=== PATIENT | female | born 1990 | race Caucasian/White ===

== ENCOUNTER 2021-01-05 21:56 | Emergency (ER) | payer OTHER ==
[2021-01-05 22:04] VITALS: BP 110/73; PULSE 96; RESP 18; TEMP 97.4
--- NOTE | 2021-01-05 22:35 | ED ---
General Adult HPI - General Chief complaint: Upper Respiratory Infection Stated complaint: Covid Exposure, Cough Time Seen by Provider: 01/05/21 22:05 Source: patient, RN notes reviewed Mode of arrival: ambulatory Limitations: no limitations - History of Present Illness Initial comments: 30-year-old female with a past medical history of asthma presents to the emergency room for a chief complaint of not feeling well. Patient states she has had a cough and congestion for the past few days. She has also had body aches. Patient is also about 8 weeks . Denies chest pain or shortness of breath.Patient has no other complaints at this time including shortness of breath, chest pain, abdominal pain, nausea or vomiting, headache, or visual pro ges. - Related Data Allergies Allergy/AdvReac Type Severity Reaction Status Date / Time sulfamethoxazole AdvReac Rash/Hives Verified 01/05/21 22:04 [From Bactrim] trimethoprim [From Bactrim] AdvReac Rash/Hives Verified 01/05/21 22:04 Review of Systems ROS Statement: Those systems with pertinent positive or pertinent negative responses have been documented in the HPI. ROS Other: All systems not noted in ROS Statement are negative. Past Medical History Past Medical History: Asthma History of Any Multi-Drug Resistant Organisms: None Reported Past Surgical History: Section Additional Past Surgical History / Comment(s): DNC Past Psychological History: Depression Smoking Status: Former smoker Past Alcohol Use History: None Reported Past Drug Use History: None Reported General Exam Limitations: no limitations General appearance: alert, in no apparent distress Head exam: Present: atraumatic Eye exam: Present: normal appearance, PERRL, EOMI. Absent: scleral icterus, conjunctival injection ENT exam: Present: normal exam, mucous membranes moist Neck exam: Present: normal inspection, full ROM Respiratory exam: Present: normal lung sounds bilaterally. Absent: respiratory distress, wheezes Cardiovascular Exam: Present: regular rate, normal rhythm, normal heart sounds Course Vital Signs 01/05/21 01/05/21 21:59 22:39 Temperature 97.4 F L Pulse Rate 96 Respiratory 18 18 Rate Blood Pressure 110/73 O2 Sat by Pulse 98 Oximetry Medical Decision Making - Medical Decision Making Vitals are stable. Patient is well-appearing. Patient did test positive for COVID-19. Pt qualifies for monoclonal antibodies given she is and does have asthma. I did encourage antibodies however patient would like to talk to her STEAMBOAT INSPECTOR first. She will try to get a hold of them tomorrow. I did inform patient that antibodies are best given earlier in disease course and to return as it is possible she does want these. She will follow-up with her doctor and return for any worsening symptoms. - Lab Data Lab Results 01/05/21 Range/Units 22:39 Coronavirus (PCR) Detected A (Not Detectd) Disposition Clinical Impression: COVID-19 Disposition: HOME SELF-CARE Condition: Good Instructions (If sedation given, give patient instructions): Coronavirus Disease 2019 (COVID-19) Additional Instructions: Please continue Tylenol for body aches. Drink plenty of fluids. Follow-up with your doctor. Return to the emergency room for any worsening symptoms. Is patient prescribed a controlled substance at d/c from ED?: No Referrals: Nonstaff,Physician [Primary Care Provider] - 1-2 days Time of Disposition: 23:23
[2021-01-05] MEDS ORDERED: ACETAMINOPHEN TAB 500 MG TAB PO STA (23:16)
== END 2021-01-05 23:43 | disposition home or self-care (01) ==
LOC: EC 21:56
DX: O98.511 Other viral diseases complicating pregnancy, first trimester (principal); U07.1 COVID-19; J45.909 Unspecified asthma, uncomplicated; F32.A Depression, unspecified; Z87.891 Personal history of nicotine dependence; Z3A.08 8 weeks gestation of pregnancy
CPT/HCPCS: 87635; 99284

== ENCOUNTER 2022-05-24 19:43 | Emergency (ER) | payer OTHER ==
[2022-05-24 19:52] VITALS: RESP 18; TEMP 98
[2022-05-24] MEDS ORDERED: KETOROLAC 15 MG/ML 1 ML VIAL IM STA (20:34)
--- NOTE | 2022-05-24 20:35 | ED ---
ENT HPI - General Chief complaint: Dental/Oral Stated complaint: toothache Time Seen by Provider: 05/24/22 20:15 Source: patient, RN notes reviewed Mode of arrival: ambulatory Limitations: no limitations - History of Present Illness Initial comments: Patient is 32-year-old female presented to the emergency room complaints of right-sided dental pain with swelling ongoing for approximately 2 days. She was evaluated by urgent care and placed on antibiotic therapy which she is currently taking. She reports taking a [place] and Percocet which are not prescribed her along with gabapentin not prescribed to her to treat the pain as it has continued despite antibiotic use. She has not scheduled with the dentist yet. She has not taken any anti-inflammatories she denies any new symptoms or new areas of concern. She is able to eat and drink without consultation. She reports fevers but is unable to disclose T-max. She denies any chills, nausea, vomiting, headache not directly related to cheek pain, dizziness or weakness. - Related Data Previous Rx's Medication Instructions Recorded Ibuprofen [Motrin] 800 mg PO Q8H PRN 7 Days #21 tab 05/24/22 Allergies Allergy/AdvReac Type Severity Reaction Status Date / Time sulfamethoxazole AdvReac Rash/Hives Verified 01/05/21 22:04 [From Bactrim] trimethoprim [From Bactrim] AdvReac Rash/Hives Verified 01/05/21 22:04 Review of Systems ROS Statement: Those systems with pertinent positive or pertinent negative responses have been documented in the HPI. ROS Other: All systems not noted in ROS Statement are negative. Past Medical History Past Medical History: Asthma History of Any Multi-Drug Resistant Organisms: None Reported Past Surgical History: Section Additional Past Surgical History / Comment(s): DNC Past Psychological History: Depression Smoking Status: Former smoker Past Alcohol Use History: Occasional Past Drug Use History: Marijuana General Exam Limitations: no limitations Course Vital Signs 05/24/22 05/24/22 19:45 20:46 Temperature 98.0 F Pulse Rate 83 90 Respiratory 18 18 Rate Blood Pressure 113/74 120/70 O2 Sat by Pulse 99 98 Oximetry Medical Decision Making - Medical Decision Making Was pt. sent in by a medical professional or institution (, PA, ELECTRO MECHANICAL TECHNOLOGIST, urgent care, hospital, or care home...) When possible be specific @ -No Did you speak to anyone other than the patient for history (EMS, parent, family, police, friend...)? What history was obtained from this source @ -No Did you review nursing and triage notes (agree or disagree)? Why? @ -I reviewed and agree with nursing and triage notes Were old charts reviewed (outside hosp., previous admission, EMS record, old EKG, old radiological studies, urgent care reports/EKG's, care home records)? Report findings @ -No old charts were reviewed Differential Diagnosis (chest pain, altered mental status, abdominal pain women, abdominal pain men, vaginal bleeding, weakness, fever, dyspnea, syncope, headache, dizziness, GI bleed, back pain, seizure, CVA, palpatations, mental health, musculoskeletal)? @ -Differential Dental Pain: Gingivitis, dental abscess, gingivitis abscess, acute pulpitis, dental caries, tooth fracture, impacted molar, toothache, acute necrotizing ulcerative gingivitis, oral herpes simplex infection, candidiasis of the mouth, aphyhous ulcer... this is not meant to be an all-inclusive list. EKG interpreted by me (3pts min.). @ -None done X-rays interpreted by me (1pt min.). @ -None done CT interpreted by me (1pt min.). @ -None done U/S interpreted by me (1pt. min.). @ -None done What testing was considered but not performed or refused? (CT, X-rays, U/S, labs)? Why? @ -None What meds were considered but not given or refused? Why? @ -None Did you discuss the management of the patient with other professionals (professionals i.e. , PA, ELECTRO MECHANICAL TECHNOLOGIST, lab, RT, psych nurse, social sciences department chair, slip maker, teacher, commercial loan collection officer, rn case management)? Give summary @ -No Was smoking cessation discussed for >3mins.? @ -No Was critical care preformed (if so, how long)? @ -No Were there social determinants of health that impacted care today? How? (Homelessness, low income, unemployed, alcoholism, drug addiction, transportation, low edu. Level, literacy, decrease access to med. care, group home, rehab)? @ -No Was there de-escalation of care discussed even if they declined (Discuss DNR or withdrawal of care, Hospice)? DNR status @ -No What co-morbidities impacted this encounter? (DM, HTN, Smoking, COPD, CAD, Cancer, CVA, ARF, Chemo, Hep., AIDS, mental health diagnosis, sleep apnea, morbid obesity)? @ -None Was patient admitted / discharged? Hospital course, mention meds given and route, prescriptions, significant lab abnormalities, going to OR and other pertinent info. @ -32-year-old female presenting to the emergency room with dental pain ongoing for 2 days despite current antibiotic prescribed by urgent care. Discussion with patient regarding course of dental abscesses and need to follow up with dentition along with need for anti-inflammatory use and warm salt water rinses. Will give 15 mg of Toradol IM and prescribed ibuprofen for use at home to take while taking her current antibiotic therapy. Advised no other NSAIDs while taking high-dose and Motrin. Advised alternating Tylenol with pain and not taking medications that are not prescribed to her. Undiagnosed new problem with uncertain prognosis? @ -No Drug Therapy requiring intensive monitoring for toxicity (Heparin, Nitro, Insulin, Cardizem)? @ -No Were any procedures done? @ -No Diagnosis/symptom? @ -Dental abscess Acute, or Chronic, or Acute on Chronic? @ -Acute Uncomplicated (without systemic symptoms) or Complicated (systemic symptoms)? @ -Uncomplicated Side effects of treatment? @ -No Exacerbation, Progression, or Severe Exacerbation? @ -No Poses a threat to life or bodily function? How? (Chest pain, [place], [place], pneumonia, PE, COPD, DKA, ARF, appy, cholecystitis, CVA, Diverticulitis, Homicidal, Suicidal, threat to staff... and all critical care pts) @ -No Case discussed with Dr. Celeste Disposition Clinical Impression: Dental abscess Disposition: HOME SELF-CARE Condition: Stable Instructions (If sedation given, give patient instructions): Dental Abscess (ED) Additional Instructions: Complete current antibiotic as prescribed by urgent care of Augmentin. Utilize ibuprofen prescription as needed for pain and swelling. Ice packs and salt water rinses may help reduce swelling. Avoid smoking and citrus/acidic food and drinks. Please follow-up with her dentist. Please return to the Emergency Department if symptoms worsen or any other concerns. Prescriptions: Ibuprofen [Motrin] 800 mg PO Q8H PRN 7 Days #21 tab PRN Reason: Pain Is patient prescribed a controlled substance at d/c from ED?: No Referrals: None,Stated [Primary Care Provider] - 1-2 days Time of Disposition: 20:35
[2022-05-24 20:47] VITALS: BP 120/70; PULSE 90
== END 2022-05-24 21:08 | disposition home or self-care (01) ==
LOC: EC 19:43
DX: K04.7 Periapical abscess without sinus (principal); J45.909 Unspecified asthma, uncomplicated; F12.90 Cannabis use, unspecified, uncomplicated; Z86.59 Personal history of other mental and behavioral disorders; Z87.891 Personal history of nicotine dependence; Z88.1 Allergy status to other antibiotic agents; Z88.2 Allergy status to sulfonamides
CPT/HCPCS: 99282; 96372; J1885